=== PATIENT | female | born 1955 | race American Indian/Alaskan Native ===

== ENCOUNTER 2017-11-07 21:44 | Emergency (ER) | payer BC, OTHER ==
[2017-11-07 21:46] VITALS: BMI 32.5
[2017-11-07 22:40] VITALS: PULSE 90; RESP 18; TEMP 98
--- NOTE | 2017-11-07 22:42 | ED PDOC ---
Arrival/HPI - General Chief Complaint: Dizziness/Lightheaded Time Seen by Provider: 11/07/17 22:01 Historian: Patient - History of Present Illness Narrative History of Present Illness (Text): you were treated in the ED today for having dizziness/room spinning with palpitations earlier today but which have resolved and otherwise without any nausea/vomiting/headache/current dizziness/difficulty breathing/chest pain/ abdomen pain/numbness/tingling/loss of limb function/pain with urination. 11/07/17 22:40 Time/Duration: Other (6-12 hours) Symptom Onset: Gradual Symptom Course: Resolved Quality: Other (no pain) Activities at Onset: Rest Context: Sitting Past Medical History - Provider Review Nursing Documentation Reviewed: Yes - Travel History Have you recently traveled outside [place] w/in the past 3 mons?: No - Infectious Disease Hx of Infectious Diseases: None - Tetanus Immunization Tetanus Immunization: Unknown - Cardiac Hx Hypertension: Yes Hx Pacemaker: No - Pulmonary Hx Respiratory Disorders: No - Neurological Hx Paralysis: No - HEENT Hx HEENT Disorder: No - Renal Hx Renal Disorder: No - Endocrine/Metabolic Hx Endocrine Disorders: No - Hematological/Oncological Hx Blood Transfusion Reaction: Yes (04/2015) - Integumentary Hx Dermatological Disorder: No - Musculoskeletal/Rheumatological Hx Musculoskeletal Disorders: Yes - Gastrointestinal Hx Gastrointestinal Disorders: No - Genitourinary/Gynecological Hx Genitourinary Disorders: No - Psychiatric Hx Psychophysiologic Disorder: No Hx Depression: No Hx Emotional Abuse: No Hx Physical Abuse: No Hx Substance Use: No - Surgical History Hx Appendectomy: Yes Hx Hysterectomy: Yes Hx Orthopedic Surgery: Yes (L KNEE) Other/Comment: PILENIDAL CYST - Anesthesia Hx Anesthesia Reactions: No Hx Malignant Hyperthermia: No - Suicidal Assessment Feels Threatened In Home Enviroment: No Family/Social History - Physician Review Nursing Documentation Reviewed: Yes Family/Social History: No Known Family HX Smoking Status: Heavy Smoker > 10 Cigarettes Daily Hx Alcohol Use: Yes (SOCIAL) Hx Substance Use: No Hx Substance Use Treatment: No Allergies/Home Meds Allergies/Adverse Reactions: Allergies No Known Allergies Allergy (Verified 07/14/12 14:46) Home Medications: Home Meds Medication Instructions Recorded Confirmed Amlodipine/Valsartan [Amlodipine 1 tab PO DAILY 05/27/15 11/07/17 Besylate-Valsartan 5 mg-320 mg] Review of Systems - Physician Review All systems were reviewed & negative as marked: Yes - Review of Systems Constitutional: Normal Eyes: Normal ENT: Normal Respiratory: Normal Cardiovascular: Palpitations Gastrointestinal: Normal Genitourinary Female: Normal Musculoskeletal: Normal Skin: Normal Neurological: Dizziness Endocrine: Normal Hemo/Lymphatic: Normal Psychiatric: Normal Physical Exam Vital Signs Reviewed: Yes Vital Signs Temp Pulse Resp BP Pulse Ox 11/07/17 23:31 98.0 F 90 18 114/62 97 11/07/17 21:46 98.0 F 90 18 135/71 98 Appearance: Positive for: Well-Appearing, Non-Toxic, Comfortable Pain Distress: None Mental Status: Positive for: Alert and Oriented X 3 - Systems Exam Head: Present: Atraumatic, Normocephalic Pupils: Present: PERRL Extroacular Muscles: Present: EOMI Conjunctiva: Present: Normal Ears: Present: Normal Mouth: Present: Moist Mucous Membranes Pharnyx: Present: Normal Nose (External): Present: Atraumatic Nose (Internal): Present: Normal Inspection Neck: Present: Normal Range of Motion Respiratory/Chest: Present: Clear to Auscultation, Good Air Exchange Cardiovascular: Present: Regular Rate and Rhythm Abdomen: No: Tenderness, Distention, Normal Bowel Sounds, Peritoneal Signs, Rebound, Guarding, McBurney's Point Tender, Rovsing's Sign Present, Hernias, Feeding Tubes, Ostomy Tubes, Mass/Organomegaly, Scars, Other Back: Present: Normal Inspection Upper Extremity: Present: Normal Inspection Lower Extremity: Present: Normal Inspection Neurological: Present: GCS=15, CN II-XII Intact, Speech Normal, Motor Func Grossly Intact Skin: Present: Warm, Normal Color Psychiatric: Present: Alert, Oriented x 3, Normal Insight, Normal Concentration Medical Decision Making ED Course and Treatment: you were treated in the ED today for having dizziness/room spinning with palpitations earlier today but which have resolved and otherwise without any nausea/vomiting/headache/current dizziness/difficulty breathing/chest pain/ abdomen pain/numbness/tingling/loss of limb function/pain with urination. You were otherwise breathing easily, pink moist lips, smiling and talking easily, good strength/sensation, alert/oriented, walking easily, clear lungs, no abdomen tenderness, no fever temp 98.0, stable heart rate 90, stable breathing rate 18, excellent oxygen level 98% room air, elevated blood pressure 135/71 which we recommend repeat in 2-3 days primary care office to determine further treatment, you have blood tests mild reactive white blood cell count 13.3, stable blood level hemoglobin [id number], stable chemistry, heart blood test normal, urine test no acute sign of infection, radiology ct head no acute findings, ECG noral sinus rhythm, observation done in the ED with improvement, counselled to stay in the hospital but you wanted to go home and thus recommended to monitor symptoms and thus discharged home. 1. 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 4. If any worsening pain, fever, chills, nausea, vomiting, difficulty breathing , numbness, loss of limb function, pain with urination or any medical condition then return to the ED. 11/07/17 22:42 EXAM: CT Head Without Intravenous Contrast Dictated and Authenticated by: Dora Loiuse MD 11/07/2017 11:23 PM IMPRESSION: 1. No acute intracranial findings. 2. Additional chronic/incidental findings as described above 11/07/17 23:49 11/07/17 23:50 11/07/17 23:51 11/08/17 00:20 CT head: 11/07/17 Brain: Mild age-related generalized cerebral atrophy and chronic small vessel ischemic disease. No hemorrhage. Ventricles: Unremarkable. No ventriculomegaly. Bones/joints: Congenital nonunion of the posterior arch of C1. No acute fracture. Soft tissues: Unremarkable. Sinuses: Unremarkable as visualized. No acute sinusitis. Mastoid air cells: Unremarkable as visualized. No mastoid effusion. IMPRESSION: 1. No acute intracranial findings. 2. Additional chronic/incidental findings as described above 11/08/17 00:38 ABCD2 neg 11/08/17 00:39 Reassessment Condition: Improved - Lab Interpretations Lab Results: 11/07/17 23:00 11/07/17 23:00 Lab Results 11/07/17 23:00: Sodium 143, Potassium 4.0, Chloride 102, Carbon Dioxide 28, Anion Gap 17, BUN 18, Creatinine 0.9, Est GFR ( Amer) > 60, Est GFR (Non- Af Amer) > 60, Random Glucose 115 H, Calcium 10.1, Magnesium 2.1, Total Bilirubin < 0.1 L, AST 23, ALT 29, Alkaline Phosphatase 118, Lactate Dehydrogenase 388, Total Creatine Kinase 103, Troponin I < 0.01, Total Protein 7.3, Albumin 4.2, Globulin 3.1, Albumin/Globulin Ratio 1.3 11/07/17 23:00: Urine Color Yellow, Urine Appearance Clear, Urine pH 7.5, Ur Specific [place] 1.010, Urine Protein Negative, Urine Glucose (UA) Negative, Urine Ketones Negative, Urine Blood Negative, Urine Nitrate Negative, Urine Bilirubin Negative, Urine Urobilinogen 0.2, Ur Leukocyte Esterase Negative 11/07/17 23:00: PT 12.0, INR 1.05, APTT 36.8 H 11/07/17 23:00: WBC 13.3 H D, RBC 4.20, Hgb 10.6 L, Hct 33.6 L, MCV 80.0, MCH 25.2, MCHC 31.5, RDW 17.5 H, Plt Count 465 H, MPV 9.4, Gran % 70.1 H, Lymph % ( Auto) 22.7, [place] % (Auto) 4.8, Eos % (Auto) 1.8, Baso % (Auto) 0.6, Gran # 9.32 H, Lymph # (Auto) 3.0, [place] # (Auto) 0.6, Eos # (Auto) 0.2, Baso # (Auto) 0.08 I have reviewed the lab results: Yes - RAD Interpretation Radiology Orders: 11/07/17 22:38 HEAD W/O CONTRAST [CT] Stat Metal Furrer: Radiologist - EKG Interpretation Interpreted by ED Physician: Yes (normal sinus rhythm) Type: 12 lead EKG NIHSS Stroke Scale 3 - Date/Time Evaluation Performed Date Performed: 11/07/17 - How Severe is the Stroke Level of Consciousness: 0=Alert LOC to Questions: 0=Both comments correct LOC to commands: 0=Obeys both correctly Best Gaze: 0=Normal Visual: 0=No visual loss Motor Arm - Left: 0=No drift Motor Arm - Right: 0=No drift Motor Leg - Left: 0=No drift Motor Leg - Right: 0=No drift Limb Ataxia: 0=Absent Sensory: 0=Normal Best Language: 0=No aphasia Dysarthia: 0=Normal articulation Extinction & Inattention (Neglect): 0=Normal, no object Disposition/Present on Arrival - Present on Arrival Any Indicators Present on Arrival: No History of DVT/PE: No History of Uncontrolled Diabetes: No Urinary Catheter: No History of Decub. Ulcer: No History Surgical Site Infection Following: None - Disposition Have Diagnosis and Disposition been Completed?: Yes Diagnosis: Dizziness, Palpitations Disposition Time: 00:40 Patient Plan: Discharge Condition: IMPROVED Additional Instructions: you were treated in the ED today for having dizziness/room spinning with palpitations earlier today but which have resolved and otherwise without any nausea/vomiting/headache/current dizziness/difficulty breathing/chest pain/ abdomen pain/numbness/tingling/loss of limb function/pain with urination. You were otherwise breathing easily, pink moist lips, smiling and talking easily, good strength/sensation, alert/oriented, walking easily, clear lungs, no abdomen tenderness, no fever temp 98.0, stable heart rate 90, stable breathing rate 18, excellent oxygen level 98% room air, elevated blood pressure 135/71 which we recommend repeat in 2-3 days primary care office to determine further treatment, you have blood tests mild reactive white blood cell count 13.3, stable blood level hemoglobin [id number], stable chemistry, heart blood test normal, urine test no acute sign of infection, radiology ct head no acute findings, ECG noral sinus rhythm, observation done in the ED with improvement, counselled to stay in the hospital but you wanted to go home and thus recommended to monitor symptoms and thus discharged home. 1. 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 4. If any worsening pain, fever, chills, nausea, vomiting, difficulty breathing, numbness, loss of limb function, pain with urination or any medical condition then return to the ED. Referrals: Guanako Yuan DO [Primary Care Provider] - Follow up with primary Forms: [facility] (Turkmen)
[2017-11-07 23:23] LABS: BASO # 0.08 K/mm3 (0.0-2.0); BASO % 0.6 % (0.0-3.0); EOS # 0.2 (0.0-0.7); EOS % 1.8 % (1.5-5.0); GRAN # 9.32 (1.4-6.5); GRAN % 70.1 % (50.0-68.0); HEMOGLOBIN 10.6 g/dL (12.0-16.0); LYMPH % 22.7 % (22.0-35.0); MEAN CORPUSCULAR HEMOGLOBIN 25.2 pg (25.0-35.0); MEAN CORPUSCULAR HGB CONC 31.5 g/dl (31.0-37.0); MEAN PLATELET VOLUME 9.4 fl (7.0-11.0); MONO # 0.6 (0.1-0.6); MONO % 4.8 % (1.0-6.0); RBC 4.2 10^6/uL (3.5-6.1); RED CELL DISTRIBUTION WIDTH 17.5 % (11.5-14.5); WHITE BLOOD COUNT 13.3 10^3/ul (4.5-11.0)
[2017-11-07 23:30] LABS: PH,URINE 7.5 (4.7-8.0); URINE BILIRUBIN NEGATIVE (NEGATIVE); URINE BLOOD NEGATIVE (NEGATIVE); URINE GLUCOSE (UA) NEGATIVE (NEGATIVE); URINE LEUKOCYTE ESTERASE NEGATIVE Leu/uL (NEGATIVE); URINE NITRATE NEGATIVE (NEGATIVE); URINE PROTEIN NEGATIVE mg/dL (<30 mg/dL); URINE UROBILINOGEN 0.2 E.U./dL (<1 E.U./dL)
[2017-11-07 23:31] LABS: ALB/GLOB RATIO 1.3 (1.1-1.8); ALBUMIN 4.2 g/dL (3.0-4.8); ALT/SGPT 29 U/L (7-56); AST/SGOT 23 U/L (14-36); BLOOD UREA NITROGEN 18 mg/dL (7-21); CALCIUM 10.1 mg/dL (8.4-10.5); GFR AFRICAN-AMERICAN > 60; GFR NON-AFRICAN AMERICAN > 60; MAGNESIUM 2.1 mg/dL (1.7-2.2)
[2017-11-07 23:33] VITALS: BP 114/62; O2SAT 97
[2017-11-07 23:35] LABS: URINE APPEARANCE CLEAR (CLEAR); URINE COLOR YELLOW (YELLOW)
[2017-11-07 23:42] LABS: TROPONIN I < 0.01 ng/mL
[2017-11-07 23:50] LABS: INR 1.05 (0.93-1.08); PARTIAL THROMBOPLASTIN TIME 36.8 Seconds (25.1-36.5)
--- NOTE | 2017-11-08 08:39 | CT ---
PROCEDURE: CT HEAD WITHOUT CONTRAST. HISTORY: 62yoF, dizziness COMPARISON: None available. TECHNIQUE: Axial computed tomography images were obtained through the head/brain without intravenous contrast. Radiation dose: Total exam DLP = 1440 mGy-cm. This CT exam was performed using one or more of the following dose reduction techniques: Automated exposure control, adjustment of the mA and/or kV according to patient size, and/or use of iterative reconstruction technique. FINDINGS: HEMORRHAGE: No intracranial hemorrhage. BRAIN: No mass effect or edema. No atrophy or chronic microvascular ischemic changes. VENTRICLES: Unremarkable. No hydrocephalus. CALVARIUM: Unremarkable. PARANASAL SINUSES: Unremarkable as visualized. No significant inflammatory changes. MASTOID AIR CELLS: Unremarkable as visualized. No inflammatory changes. OTHER FINDINGS: The report concurs with the preliminary [facility] report IMPRESSION: No acute intracranial findings
--- NOTE | 2017-11-09 02:46 | CARD ---
APPROVED REPORT EKG Measurement Heart [id number] <Conclusion> Normal sinus rhythm Normal ECG
== END 2017-11-08 01:01 | disposition home or self-care (01) ==
LOC: ED 21:44
DX: R00.2 Palpitations (principal); R42 Dizziness and giddiness; I10 Essential (primary) hypertension; F17.210 Nicotine dependence, cigarettes, uncomplicated

== ENCOUNTER 2018-11-27 11:41 | Emergency (ER) | payer OTHER ==
[2018-11-27 12:27] VITALS: BMI 33.6
[2018-11-27 12:43] VITALS: PULSE 72; RESP 18; TEMP 98.1
--- NOTE | 2018-11-27 14:13 | RAD ---
Date of service: 11/27/2018 PROCEDURE: Right Ankle Radiographs. HISTORY: ankle pain COMPARISON: Comparison made with concurrent radiographs the right foot. FINDINGS: BONES: There is a tiny crescentic shaped bony density adjacent to the anterior inferior margin of the distal tibia at the anterior tibiotalar articulation. There is another small corticated elliptical shaped density adjacent to dorsal distal margin of the talus. Findings could represent old posttraumatic mineralization or possibly old unfused avulsion injury.. JOINTS: Normal. No osteoarthritis. Ankle mortise maintained. Talar dome intact SOFT TISSUES: No significant soft tissue swelling OTHER FINDINGS: None. IMPRESSION: No acute fractures. Tiny corticated densities adjacent to the anterior distal tibia at the tibiotalar articulation and dorsal to the distal talus represent old posttraumatic mineralization or possibly old unfused avulsion injuries.. Repeat radiographs in 7-10 days could be performed if acute fracture suspected clinically
--- NOTE | 2018-11-27 15:25 | ED PDOC ---
Arrival/HPI - General Chief Complaint: Lower Extremity Problem/Injury Time Seen by Provider: 11/27/18 12:33 Historian: Patient - History of Present Illness Narrative History of Present Illness (Text): 11/27/18 15:53 63-year-old female presents today with right foot and ankle pain status post injury. Patient states while at work she a clock fell and hit her in the head. Patient states she twisted her body to try to move out of the way but the clock it her in the head. Patient denies headache dizziness or weakness. She denies loss of consciousness. Patient states she was evaluated briefly by a nurse practitioner in the hallway after the incident and was fine. Patient states she was walking and ambulating well and then suddenly 45 minutes after the injury she developed severe right foot pain. Patient states she is unable to put weight on the foot. no medications were taken. Pt denies numbness, weakness, tingling in the extremity.no other complaints. Past Medical History - Provider Review Nursing Documentation Reviewed: Yes - Travel History Have you recently traveled outside [place] w/in the past 3 mons?: No - Infectious Disease Hx of Infectious Diseases: None - Tetanus Immunization Tetanus Immunization: Unknown - Cardiac Hx Hypertension: Yes Hx Pacemaker: No - Pulmonary Hx Respiratory Disorders: No - Neurological Hx Paralysis: No - HEENT Hx HEENT Disorder: No - Renal Hx Renal Disorder: No - Endocrine/Metabolic Hx Endocrine Disorders: No - Hematological/Oncological Hx Blood Transfusion Reaction: Yes (04/2015) - Integumentary Hx Dermatological Disorder: No - Musculoskeletal/Rheumatological Hx Musculoskeletal Disorders: Yes - Gastrointestinal Hx Gastrointestinal Disorders: No - Genitourinary/Gynecological Hx Genitourinary Disorders: No - Psychiatric Hx Psychophysiologic Disorder: No Hx Depression: No Hx Emotional Abuse: No Hx Physical Abuse: No Hx Substance Use: No - Surgical History Hx Appendectomy: Yes Hx Hysterectomy: Yes Hx Orthopedic Surgery: Yes (L KNEE) Other/Comment: PILENIDAL CYST - Anesthesia Hx Anesthesia: Yes Hx Anesthesia Reactions: No Hx Malignant Hyperthermia: No - Suicidal Assessment Feels Threatened In Home Enviroment: No Family/Social History - Physician Review Nursing Documentation Reviewed: Yes Family/Social History: Unknown Family HX Smoking Status: Heavy Smoker > 10 Cigarettes Daily Hx Alcohol Use: Yes (SOCIAL) Hx Substance Use: No Hx Substance Use Treatment: No Allergies/Home Meds Allergies/Adverse Reactions: Allergies No Known Allergies Allergy (Verified 11/27/18 12:27) Home Medications: Home Meds Medication Instructions Recorded Confirmed Amlodipine/Valsartan [Amlodipine 1 tab PO DAILY 05/27/15 11/07/17 Besylate-Valsartan 5 mg-320 mg] Review of Systems - Review of Systems Constitutional: absent: Fatigue, Fevers Eyes: absent: Vision Changes, Photophobia, Eye Pain Respiratory: absent: SOB, Cough Cardiovascular: absent: Chest Pain, Palpitations Gastrointestinal: absent: Normal, Abdominal Pain, Constipation, Vomiting Musculoskeletal: Arthralgias (right foot/ ankle pain) Skin: absent: Rash, Pruritis Neurological: absent: Headache, Dizziness Psychiatric: absent: Anxiety, Depression Physical Exam Vital Signs Reviewed: Yes Vital Signs Temp Pulse Resp BP Pulse Ox 11/27/18 12:42 98.1 F 72 18 103/51 L 96 Temperature: Afebrile Blood Pressure: Normal Pulse: Regular Respiratory Rate: Normal Appearance: Positive for: Well-Appearing, Non-Toxic, Comfortable Pain Distress: None Mental Status: Positive for: Alert and Oriented X 3 - Systems Exam Head: Present: Atraumatic Mouth: Present: Moist Mucous Membranes Neck: Present: Normal Range of Motion Respiratory/Chest: Present: Clear to Auscultation, Good Air Exchange. No: Respiratory Distress, Accessory Muscle Use Cardiovascular: Present: Regular Rate and Rhythm, Normal S1, S2. No: Murmurs Upper Extremity: Present: Normal Inspection Lower Extremity: Present: NORMAL PULSES, Normal ROM, Tenderness (right foot/ankle; + ttp over dorsal aspect of ankle/foot; no edema, no erythema; sensation and distal pulses intact. cap refill <2. ), Neurovascularly Intact, Capillary Refill < 2 s. No: CALF TENDERNESS, Swelling, Erythema, Deformity Neurological: Present: GCS=15, Speech Normal Skin: Present: Warm, Dry, Normal Color. No: Rashes Psychiatric: Present: Alert, Oriented x 3 Medical Decision Making ED Course and Treatment: 11/27/18 16:07 Patient nontoxic well-appearing in no distress with stable vital signs X-rays of the right foot; no fracture xrays of the right ankle; no fracture tylenol po Patient placed in short leg posterior splint. crutches given for ambulation. I discussed all results in depth with the patient advised to followup with the employee health tomorrow. pt will possibly need f/u with orthopedist within the next 2 days. Advised return if symptoms worsen persist or new symptoms develop Patient verbalizes understanding of discharge instructions and need for immediate followup. all aspects of this case were discussed the attending of record. Impression: Ankle pain, foot pain tylenol every 4 hours as needed for pain Rest, ice, compression, elevation Use crutches for ambulation Follow up with [facility] tomorrow. Followup with the orthopedist within the next 2 days Followup with primary care physician within the next 2 days Return if symptoms worsen persist or if new symptoms develop - RAD Interpretation Radiology Orders: 11/27/18 13:13 ANKLE RIGHT 3 VIEWS ROUTINE [RAD] Stat FOOT RIGHT 3 VIEWS ROUTINE [RAD] Stat - Medication Orders Current Medication Orders: Discontinued Medications Acetaminophen (Tylenol 325mg Tab) 975 mg PO STAT STA Stop: 11/27/18 13:14 Last Admin: 11/27/18 13:16 Dose: 975 mg MAR Pain/Vitals Document 11/27/18 13:16 [place] (Rec: 11/27/18 13:18 [place] [facility] [id number]) Pain Reassessment Is This A Pain ReAssessment? No Sleep Is patient sleeping during reassessment? No Presence of Pain Presence of Pain Yes Pain Scale Used Protocol: PSCALES Pain Scale Used Numeric Location Left, Right or Bilateral Right Pain Location Body Site Ankle Description Intermittent Intensity 8 Procedures - Splinting Location: right ankle/foot Hand-Made Type: fiberglass Splint: posterior short leg splint Pre-Proc Neuro Vasc Exam: normal Post-Proc Neuro Vasc Exam: normal Disposition/Present on Arrival - Present on Arrival Any Indicators Present on Arrival: No History of DVT/PE: No History of Uncontrolled Diabetes: No Urinary Catheter: No History of Decub. Ulcer: No History Surgical Site Infection Following: None - Disposition Have Diagnosis and Disposition been Completed?: Yes Diagnosis: Foot pain Disposition: HOME/ ROUTINE Disposition Time: 14:13 Patient Plan: Discharge Condition: GOOD Discharge Instructions (ExitCare): Muscle and Bone Pain (DC) Additional Instructions: Tylenol every 4 hours as needed for pain Rest, ice, compression, elevation Use crutches for ambulation Follow up with [facility] TOMORROW Followup with the orthopedist within the next 2 days Followup with primary care physician within the next 2 days Return if symptoms worsen persist or if new symptoms develop [facility] [employer] Regarding your Work Related Injury, you are instructed to do all of the following by next day: 1. Notify [employer] [facility] Employee Health Department of the sustained injury and arrange for any follow-up appointments if needed during the next business day. If the office is closed or no answer is received, please leave a detailed voice message. Message should include your full name, department and design manager, date of injury, date of ED visit if applicable. Employee Health can be reached at [phone]. 2. If there is time lost, notify [facility] Human Resources Department of the work related injury the next business day at [phone]. Referrals: Loan Buck MD [Staff Provider] - Follow up with primary Forms: [facility] (Mongolian), WORK NOTE
[2018-11-27 15:32] VITALS: BP 110/71; O2SAT 100
--- NOTE | 2018-11-27 17:47 | RAD ---
Date of service: 11/27/2018 PROCEDURE: Right Foot Radiographs. HISTORY: Right foot Pain. No history of recent/ related trauma provided COMPARISON: None. FINDINGS: BONES: Normal. No fracture. JOINTS: Minor hallux valgus deformity. SOFT TISSUES: Normal. OTHER FINDINGS: None. IMPRESSION: No acute findings related to/ accounting for the clinical presentation.
== END 2018-11-27 15:35 | disposition home or self-care (01) ==
LOC: ED 11:41
DX: M79.671 Pain in right foot (principal); I10 Essential (primary) hypertension; F17.210 Nicotine dependence, cigarettes, uncomplicated

== ENCOUNTER 2018-12-14 11:39 | Outpatient (CLI) | payer OTHER | END 2018-12-14 11:40 | disposition home or self-care (01) | LOC: LAB 11:39 ==

== ENCOUNTER 2018-12-25 08:06 | Outpatient (CLI) | payer OTHER | END 2018-12-25 08:07 | disposition home or self-care (01) | LOC: RAD 08:06 ==